=== PATIENT | female | born 1990 | race American Indian/Alaskan Native ===

== ENCOUNTER 2018-11-20 20:02 | Emergency (ER) | payer SELFPAY ==
[2018-11-20] MEDS ORDERED: BENADRYL PO ONE (22:13)
[2018-11-20] MEDS ORDERED: DELTASONE PO ONE (22:13)
[2018-11-20] MEDS ORDERED: PEPCID PO ONE (22:13)
--- NOTE | 2018-11-20 22:46 | Emergency Department Report ---
ED Rash HPI - HPI Chief Complaint: Skin Rash Stated Complaint: RASH ON FACE/CHEST Time Seen by Provider: 11/20/18 21:44 Duration: 3 Days Location: Chest, Back, Upper Extremities Suspected Cause: Unknown Rash Symptoms: Yes Itching, No Facial Swelling, No Tongue/Oral Swelling, No Breathing Difficulties, No Choking Sensation, No Wheezing/Dyspnea, No Peeling, No Blistering, No Fever, No Lightheaded, No Malaise, No Myalgias Severity: moderate Other History: this is a recurring rash to neck trunk and bilat extemities pt d enies fever or chills no sob no n/v no cuate no cp usually relieved with prednisone and benadryl. ED Review of Systems ROS: Stated complaint: RASH ON FACE/CHEST Other details as noted in HPI Constitutional: denies: chills, fever Eyes: denies: eye pain, eye discharge, vision change ENT: denies: ear pain, throat pain Respiratory: denies: cough, shortness of breath, wheezing Cardiovascular: denies: chest pain, palpitations Endocrine: no symptoms reported Gastrointestinal: denies: abdominal pain, nausea, diarrhea Genitourinary: denies: urgency, dysuria, discharge Musculoskeletal: denies: back pain, joint swelling, arthralgia Skin: rash, pruritus Neurological: denies: headache, weakness, paresthesias Psychiatric: denies: anxiety, depression Hematological/Lymphatic: denies: easy bleeding, easy bruising ED Past Medical Hx - Past Medical History Previous Medical History?: No Additional medical history: h/o anxiety, undiagnosed - Surgical History Past Surgical History?: No - Social History Smoking Status: Never Smoker - Medications Home Medications: Home Medications Medication Instructions Recorded Confirmed Last Taken Type ALPRAZolam [Xanax TAB] 0.5 mg PO BID PRN #6 tab 03/30/18 Unknown Rx Famotidine [Pepcid] 20 mg PO BID 7 Days #14 tablet 11/20/18 Unknown Rx Triamcinolone Aceton 0.1% (Nf) 1 applic TP BID 14 Days #1 tube 11/20/18 Unknown Rx [Kenalog (NF)] diphenhydrAMINE [Benadryl CAP] 25 mg PO Q6HR PRN 7 Days #30 11/20/18 Unknown Rx capsule predniSONE [Deltasone] 40 mg PO QDAY 5 Days #10 tab 11/20/18 Unknown Rx Rash Exam - Exam General: Vital signs noted. No distress. Alert and acting appropriately. Lungs: Yes Good Air Exchange (Normal Breath Sounds), No Wheezes, No Ronchi, No Stridor, No Cough, No Labored Respirations, No Retractions, No Use of Accessory Muscles, No Other Abnormal Lung Sounds Heart: Yes Regular, No Murmur Skin: Yes Urticarial Rash, Yes Maculopapular Rash, Yes Erythema, No Morbilliform rash, No Bulla(e), No Excoriations, No Weeping, No Tenderness, No Edema, No Encrustations, No Other Other: Positive: Abdomen Normal, Neurologic Normal, Musculoskeletal Normal ED Course Vital Signs 11/20/18 20:07 Temperature 98.1 F Pulse Rate 68 Respiratory 16 Rate Blood Pressure 119/71 O2 Sat by Pulse 98 Oximetry ED Medical Decision Making - Medical Decision Making This is a contact dermatitis symptoms are improved with medications given in ED plan a short burst steroids, Benadryl N triamcinolone ointment patient's PCP in 2-3 days return to ED should symptoms worsen there is no shortness of breath dizziness chest pain at this time Critical care attestation.: If time is entered above; I have spent that time in minutes in the direct care of this critically ill patient, excluding procedure time. ED Disposition Clinical Impression: Contact dermatitis Qualifiers: Contact dermatitis type: allergic Contact dermatitis trigger: other trigger Qualified Code(s): L23.89 - Allergic contact dermatitis due to other agents; L23.8 - Allergic contact dermatitis due to other agents Disposition: DC-01 TO HOME OR SELFCARE Is pt being admited?: No Does the pt Need Aspirin: No Condition: Stable Instructions: Contact Dermatitis (ED) Prescriptions: diphenhydrAMINE [Benadryl CAP] 25 mg PO Q6HR PRN 7 Days #30 capsule PRN Reason: itching predniSONE [Deltasone] 40 mg PO QDAY 5 Days #10 tab Triamcinolone Aceton 0.1% (Nf) [Kenalog (NF)] 1 applic TP BID 14 Days #1 tube Famotidine [Pepcid] 20 mg PO BID 7 Days #14 tablet Referrals: EMILE BREAUX MD [Primary Care Provider] - 3-5 Days MARY GRACE AUGUSTIN MD [Staff Physician] - 3-5 Days Forms: Work/School Release Form(ED) Time of Disposition: 22:48
[2018-11-21 01:47] VITALS: BP 115/65
== END 2018-11-20 22:57 | disposition home or self-care (01) ==
LOC: ED 20:02
DX: L23.89 Allergic contact dermatitis due to other agents (principal); F41.9 Anxiety disorder, unspecified
CPT/HCPCS: 99282; J7512

== ENCOUNTER 2018-12-31 12:37 | Emergency (ER) | payer SELFPAY ==
--- NOTE | 2018-12-31 12:46 | Event Note ---
ED Screening Note Date of service: 12/31/18 Time: 12:44 ED Screening Note: 28 y o female presents for left knee pain after hearing a pop while she was doing lunges exersice last night states left knee swelling limping This initial assessment/diagnostic orders/clinical plan/treatment(s) is/are s ubject to change based on patients health status, clinical progression and re- assessment by fellow clinical providers in the ED. Further treatment and workup at subsequent clinical providers discretion. Patient/guardian urged not to elope from the ED as their condition may be serious if not clinically assessed and managed. Initial orders include: xray left knee
[2018-12-31 12:50] VITALS: BP 118/53
--- NOTE | 2018-12-31 13:31 | Emergency Department Report ---
ED Extremity Problem HPI - General Chief complaint: Extremity Injury, Lower Stated complaint: LFT KNEE PAIN Time Seen by Provider: 12/31/18 12:44 Source: patient Mode of arrival: Ambulatory Limitations: No Limitations - History of Present Illness Initial comments: Reports that while exercising yesterday she heard her left knee pop. Denies trauma. Complaint: extremity pain -: Gradual, days(s) (1) Location: left, knee History of Same: No -: No arthralgia, No fever, No associated dyspnea, No associated chest pain Radiation: none Severity scale (0 -10): 1 Quality: aching Consistency: intermittent Improves with: rest Worsens with: walking Associated Symptoms: denies other symptoms - Related Data Previous Rx's Medication Instructions Recorded Last Taken Type ALPRAZolam [Xanax TAB] 0.5 mg PO BID PRN #6 tab 03/30/18 Unknown Rx Famotidine [Pepcid] 20 mg PO BID 7 Days #14 tablet 11/20/18 Unknown Rx Triamcinolone Aceton 0.1% (Nf) 1 applic TP BID 14 Days #1 tube 11/20/18 Unknown Rx [Kenalog (NF)] diphenhydrAMINE [Benadryl CAP] 25 mg PO Q6HR PRN 7 Days #30 11/20/18 Unknown Rx capsule predniSONE [Deltasone] 40 mg PO QDAY 5 Days #10 tab 11/20/18 Unknown Rx Allergies Allergy/AdvReac Type Severity Reaction Status Date / Time No Known Allergies Allergy Verified 11/20/18 20:05 ED Review of Systems ROS: Stated complaint: LFT KNEE PAIN Other details as noted in HPI Other: GENERAL: No weight change, fatigue, fever, chills, or night sweats SKIN: No changes in skin or hair, no itching, no rashes, no jaundice HEAD: No trauma, headache, or visual changes EYES: No blurriness, tearing, itching, acute visual loss, conjunctival discoloration, or scleral icterus EARS: No hearing loss, tinnitus, vertigo, or earache NOSE: No rhinorrhea, stuffiness, sneezing, itching, or epistaxis MOUTH: No bleeding gums, hoarseness, sore throat, or swelling CARDIAC: No new murmur, chest pain, palpitations, dyspnea on exertion, orthopnea, PND, or edema RESPIRATORY: No shortness of breath, wheeze, cough, sputum production, hemoptysis, pneumonia, asthma, bronchitis, or emphysema GI: No change in appetite, nausea, vomiting, dysphagia, diarrhea, constipation, hematemesis, melena, hematochezia, or abdominal pain URINARY: No frequency, urgency, polyuria, dysuria, hematuria, or incontinence MUSCULOSKELETAL: Left knee pain. No muscle weakness, joint stiffness, decrease in range of motion, redness, swelling NEUROLOGIC: No headache, loss of sensation, numbness, tingling, tremors, weakness, paralysis, seizures HEMATOLOGIC: No anemia, easy bruising, bleeding, petechiae, or purpura ENDOCRINE: No hot or cold intolerance, sweating, polyuria, polydipsia or, polyphagia no thyroid problems PSYCHIATRIC: No change in mood, no anxiety, no depression ED Past Medical Hx - Past Medical History Previous Medical History?: No Hx Asthma: No Additional medical history: h/o anxiety, undiagnosed - Surgical History Past Surgical History?: No - Social History Smoking Status: Never Smoker Substance Use Type: None - Medications Home Medications: Home Medications Medication Instructions Recorded Confirmed Last Taken Type ALPRAZolam [Xanax TAB] 0.5 mg PO BID PRN #6 tab 03/30/18 Unknown Rx Famotidine [Pepcid] 20 mg PO BID 7 Days #14 tablet 11/20/18 Unknown Rx Triamcinolone Aceton 0.1% (Nf) 1 applic TP BID 14 Days #1 tube 11/20/18 Unknown Rx [Kenalog (NF)] diphenhydrAMINE [Benadryl CAP] 25 mg PO Q6HR PRN 7 Days #30 11/20/18 Unknown Rx capsule predniSONE [Deltasone] 40 mg PO QDAY 5 Days #10 tab 11/20/18 Unknown Rx ED Physical Exam - General Limitations: No Limitations - Other Other exam information: GENERAL: Patient in no acute distress HEAD: Normocephalic, atraumatic EYES: PERRLA, EOM intact, no scleral icterus, no conjunctival hemorrhage, visual manjarrez and acuity wnl NOSE: No tenderness, discharge, sinus tenderness MOUTH: No erythema, bleeding, exudate HEART: pulses are symmetric LUNGS: No respiratory distress. MUSCULOSKELETAL: Normal joint range of motion, no redness, no swelling, no tenderness NEUROLOGIC: GCS 15, Alert and Oriented x3, Cranial nerves intact, normal sensation, normal strength, no cerebellar deficit, NIHSS 0 PSYCHIATRIC: No homicidal or suicidal ideation, no anxiety, no depression, no hallucinations SKIN: Skin is warm and dry, no wounds, no rashes ED Course Vital Signs 12/31/18 12:49 Temperature 98.6 F Pulse Rate 71 Respiratory 18 Rate Blood Pressure 118/53 O2 Sat by Pulse 98 Oximetry ED Medical Decision Making - Medical Decision Making Patient comfortable. Concern possible ligamentous injury. Patient offered crutches and knee brace in the ER. Patient refuses offer and reports she will follow up outpatient for evaluation MRI. Plan discharge with outpatient follow up. Return if any worsening. Critical care attestation.: If time is entered above; I have spent that time in minutes in the direct care of this critically ill patient, excluding procedure time. ED Disposition Clinical Impression: Strain of left knee Qualifiers: Encounter type: initial encounter Qualified Code(s): S86.912A - Strain of u nspecified muscle(s) and tendon(s) at lower leg level, left leg, initial encounter Disposition: TO HOME OR SELFCARE Is pt being admited?: No Condition: Stable Instructions: Knee Sprain (ED) Referrals: ARIANA ALVA MD [Staff Physician] - 2-3 Days ROWENA WATTS MD [Staff Physician] - 2-3 Days [facility] [Outside] - as needed Time of Disposition: 13:31
--- NOTE | 2018-12-31 13:32 | XRay Report ---
LEFT KNEE, 3 VIEWS INDICATION / CLINICAL INFORMATION: knee pain and swelling. COMPARISON: None available. FINDINGS: No significant abnormality. No fracture, dislocation, or joint effusion. No significant degenerative change. IMPRESSION: Negative exam. Signer Name: Camila Orosco MD Signed: 12/31/2018 1:28 PM Workstation Name: [id number]
== END 2018-12-31 13:36 | disposition home or self-care (01) ==
LOC: ED 12:37
DX: S86.912A Strain of unspecified muscle(s) and tendon(s) at lower leg level, left leg, initial encounter (principal); F41.9 Anxiety disorder, unspecified; X58.XXXA Exposure to other specified factors, initial encounter; Y93.89 Activity, other specified; Y92.89 Other specified places as the place of occurrence of the external cause; Y99.8 Other external cause status